=== PATIENT | male | born 1945 | race Caucasian/White ===

== ENCOUNTER → 2017-08-25 | Outpatient (REF) | payer MEDICARE ==
[2017-08-25 13:29] LABS: HEMATOCRIT 41.8 % (42.0-52.0); HEMOGLOBIN 13.7 g/dl (14.0-18.0); MEAN CORPUSCULAR HEMOGLOBIN 28.9 pg (27.0-33.0); MEAN CORPUSCULAR HGB CONC 32.8 g/dl (32.0-36.5); MEAN CORPUSCULAR VOLUME 88.2 fl (80.0-96.0); PLATELET COUNT, AUTOMATED 257 10^3/uL (150-450); RED BLOOD COUNT 4.74 10^6/uL (4.30-6.10); RED CELL DISTRIBUTION WIDTH 13.4 % (11.5-14.5); WHITE BLOOD COUNT 6.1 10^3/uL (4.0-10.0)
[2017-08-25 13:56] LABS: ALBUMIN 3.8 GM/DL (3.2-5.2); ALBUMIN/GLOBULIN RATIO 1.23 (1.00-1.93); ALKALINE PHOSPHATASE 98 U/L (45-117); ALT/SGPT 21 U/L (12-78); ANION GAP 7 MEQ/L (8-16); AST/SGOT 22 U/L (7-37); BILIRUBIN,TOTAL 0.6 MG/DL (0.2-1.0); BLOOD UREA NITROGEN 14 MG/DL (7-18); CARBON DIOXIDE LEVEL 30 MEQ/L (21-32); CHLORIDE LEVEL 106 MEQ/L (98-107); CHOLESTEROL LEVEL 196 MG/DL (<200); CHOLESTEROL RISK RATIO 3.629 (<5); CREATININE FOR GFR 0.93 MG/DL (0.70-1.30); GLOMERULAR FILTRATION RATE > 60.0 (>42); GLUCOSE, FASTING 77 MG/DL (70-100); HDL CHOLESTEROL 54 MG/DL (>40); LDL CHOLESTEROL 126.8 MG/DL (<100); NON-HDL-C 142 MG/DL; POTASSIUM SERUM 4.2 MEQ/L (3.5-5.1); SODIUM LEVEL 143 MEQ/L (136-145); TOTAL PROTEIN 6.9 GM/DL (6.4-8.2); TRIGLYCERIDES LEVEL 76 MG/DL (<150)
== END ==
LOC: M SFHCPLAZ 11:57
DX: Z00.00 Encounter for general adult medical examination without abnormal findings (principal); E78.00 Pure hypercholesterolemia, unspecified
CPT/HCPCS: 80053

== ENCOUNTER → 2019-08-29 | Outpatient (CLI) | payer MEDICARE ==
[~2019-08-29] MED LIST: E-Z-GAS II EFFERVESCENT PACKET (SODIUM BICARB./CITRIC ACID/SIMETHICONE) As Ordered ONE; E-Z-HD 98% w/w 340GM SUSP BTL As Ordered ONE; E-Z-PAQUE 96% w/w SUSP 176GM BTL As Ordered ONE
--- NOTE | 2019-08-29 11:29 | REP ---
Clinical: Dysphasia. History of esophageal varices. Technique: Real time wyatt scale and color evaluation using curved array transducer. Findings: The liver demonstrates a somewhat coarsened echotexture with increased echogenicity suggesting fatty infiltration the and possible focal fatty sparing adjacent to the gallbladder fossa. Liver contour is relatively normal. The pancreas is incompletely evaluated due to interposed bowel gas. The gallbladder is normal and without gallstones, wall thickening, or pericholecystic fluid. No biliary ductal dilatation is appreciated and the common bile duct measures 5.1 mm diameter. The right kidney demonstrates increased central sinus fat and renovascular calcifications without hydronephrosis and measures 10.6 x 5.3 x 4.9 cm. No ascites in the visualized right upper quadrant. Impression: 1. Findings to suggest hepatocellular disease without focal hepatic lesion. 2. Age-related renal disease. Electronically Signed by Martell Warren MD 08/29/2019 11:21 A
--- NOTE | 2019-08-29 20:02 | REP ---
Esophagram The procedure was performed under the direct supervision of Dr. Martins. The images were reviewed with Dr. Martins. A single view PA chest x-ray is submitted as a continuous still operator film. The superior mediastinal structures are midline. The heart size is within normal limits. The lungs are clear. Liquid barium and gas producing granules were given in the erect position as well as liquid barium in the prone oblique positions in order to perform a double contrast esophagram examination. The oral and pharyngeal stages of deglutition are unremarkable. There is a large Zenker's diverticulum identified. Esophageal transport is prompt and efficient and there is no esophagitis stricture or mucosal ring. There is a sliding type hiatal hernia. Gastroesophageal reflux is not demonstrated on this examination. Impression: 1. There is a large Zenker's diverticulum. 2. There is a sliding type hiatal hernia. One minutes of fluoro time was utilized for this procedure. Electronically Signed by EDU Bearden 08/29/2019 04:38 P Electronically Signed by Saji Martins MD 08/29/2019 07:53 P
== END ==
LOC: M RAD 09:46
PROVIDERS: ATTEND Internal Medicine Gastroenterology
DX: I85.00 Esophageal varices without bleeding (principal); R13.10 Dysphagia, unspecified

== ENCOUNTER → 2020-03-01 | Outpatient (CLI) | payer MEDICARE ==
--- NOTE | 2020-04-12 10:06 | REP ---
RIGHT UPPER QUADRANT ULTRASOUND: HISTORY: Cirrhosis. COMPARISON: 08/29/19 FINDINGS: Scanning through the right upper quadrant of the abdomen demonstrates a normal size, thin-walled gallbladder without evidence of stone or polyp. The common bile duct is normal, measuring 0.4 cm in greatest diameter. The liver parenchyma is hyperechoic diffusely, consistent with fatty infiltration. No focal liver mass lesion is seen. Limited views of the pancreas show no abnormality. There is no evidence of ascites or right renal abnormality. The right kidney measures 11.3 x 5.9 x 5.2 cm. IMPRESSION: Findings consistent with fatty infiltration of the liver. No focal liver lesion. Otherwise, negative right upper quadrant sonography. MTDD
== END ==
LOC: M RAD 09:30
PROVIDERS: ATTEND Internal Medicine Gastroenterology
DX: K74.60 Unspecified cirrhosis of liver (principal); I85.00 Esophageal varices without bleeding; R13.10 Dysphagia, unspecified; K22.2 Esophageal obstruction; K22.5 Diverticulum of esophagus, acquired; R79.9 Abnormal finding of blood chemistry, unspecified

== ENCOUNTER → 2020-09-23 | Outpatient (REF) | payer MEDICARE ==
[2020-09-23 13:53] LABS: BASO % 0.6 % (0.0-1.0); EOS # 0.1 10^3/uL (0.0-0.5); EOS % 1.8 % (0.0-3.0); HEMATOCRIT 39.5 % (42.0-52.0); LYMPH # 2.3 10^3/uL (1.5-5.0); LYMPH % 33.9 % (24.0-44.0); MEAN CORPUSCULAR HEMOGLOBIN 24.9 pg (27.0-33.0); MEAN CORPUSCULAR HGB CONC 30.4 g/dl (32.0-36.5); MONO # 0.7 10^3/uL (0.0-0.8); MONO % 9.9 % (2.0-8.0); NEUTROPHILS # 3.6 10^3/uL (1.5-8.5); NEUTROPHILS % 53.5 % (36.0-66.0); PLATELET COUNT, AUTOMATED 305 10^3/uL (150-450); RED BLOOD COUNT 4.82 10^6/uL (4.30-6.10); WHITE BLOOD COUNT 6.7 10^3/uL (4.0-10.0)
[2020-09-23 14:02] LABS: INR 1.07; PROTHROMBIN TIME 14.1 SECONDS (12.5-14.3)
[2020-09-23 14:27] LABS: ALBUMIN 3.9 GM/DL (3.2-5.2); ALT/SGPT 22 U/L (12-78); BILIRUBIN,TOTAL 0.4 MG/DL (0.2-1.0); BLOOD UREA NITROGEN 19 MG/DL (7-18); CALCIUM LEVEL 8.7 MG/DL (8.8-10.2); CARBON DIOXIDE LEVEL 28 MEQ/L (21-32); CHLORIDE LEVEL 109 MEQ/L (98-107); CHOLESTEROL LEVEL 197 MG/DL (<200); CHOLESTEROL RISK RATIO 3.078 (<5); CREATININE FOR GFR 1.16 MG/DL (0.70-1.30); GLOMERULAR FILTRATION RATE > 60.0 (>42); GLUCOSE, FASTING 87 MG/DL (70-100); HDL CHOLESTEROL 64 MG/DL (>40); LDL CHOLESTEROL 122 MG/DL (<100); NON-HDL-C 133 MG/DL; POTASSIUM SERUM 4.8 MEQ/L (3.5-5.1); SODIUM LEVEL 141 MEQ/L (136-145); TOTAL PROTEIN 6.9 GM/DL (6.4-8.2); TRIGLYCERIDES LEVEL 56 MG/DL (<150)
[2020-09-24 08:22] LABS: FERRITIN 15 NG/ML (26-388); IRON (FE) 58 UG/DL (65-175); PERCENT SATURATION 13.6 % (19.7-50.0); TOTAL IRON BINDING CAPACITY 428 UG/DL (250-450)
[2020-09-24 10:13] LABS: VITAMIN B12 LEVEL 314 PG/ML
[2020-09-24 10:14] LABS: FOLATE 9.2 NG/ML
== END ==
LOC: M SFHCPLAZ 11:03
PROVIDERS: ATTEND Internal Medicine
DX: R93.2 Abnormal findings on diagnostic imaging of liver and biliary tract (principal); E78.00 Pure hypercholesterolemia, unspecified; R13.10 Dysphagia, unspecified; Z12.5 Encounter for screening for malignant neoplasm of prostate
CPT/HCPCS: 36415; 80053; 80061; 82607; 82728; 82746; 83550; 85025; 85610; G0103

== ENCOUNTER → 2021-09-24 | Outpatient (REF) | payer MEDICARE | LOC: M SFHCPLAZ 10:46 | PROVIDERS: ATTEND Internal Medicine | DX: D64.9 Anemia, unspecified (principal); E78.00 Pure hypercholesterolemia, unspecified; R93.2 Abnormal findings on diagnostic imaging of liver and biliary tract; Z12.5 Encounter for screening for malignant neoplasm of prostate ==

== ENCOUNTER → 2021-09-24 | Outpatient (CLI) | payer MEDICARE ==
[2021-09-24 15:18] LABS: BASO % 0.3 % (0.0-1.0); EOS # 0.2 10^3/uL (0.0-0.5); EOS % 2.2 % (0.0-3.0); HEMATOCRIT 47.1 % (42.0-52.0); HEMOGLOBIN 15.8 g/dl (13.5-17.5); LYMPH # 2.4 10^3/uL (1.5-5.0); MEAN CORPUSCULAR HEMOGLOBIN 30.2 pg (27.0-33.0); MEAN CORPUSCULAR HGB CONC 33.5 g/dl (32.0-36.5); MEAN CORPUSCULAR VOLUME 90.1 fl (80.0-96.0); MONO # 0.8 10^3/uL (0.0-0.8); MONO % 11.8 % (2.0-8.0); NEUTROPHILS # 3.7 10^3/uL (1.5-8.5); NEUTROPHILS % 51.6 % (36.0-66.0); PLATELET COUNT, AUTOMATED 232 10^3/uL (150-450); RED BLOOD COUNT 5.23 10^6/uL (4.30-6.10); WHITE BLOOD COUNT 7.1 10^3/uL (4.0-10.0)
[2021-09-24 15:29] LABS: INR 1.02; PROTHROMBIN TIME 13.8 SECONDS (12.7-14.5)
[2021-09-24 16:00] LABS: ALBUMIN 3.9 GM/DL (3.2-5.2); ALT/SGPT 45 U/L (12-78); BILIRUBIN,TOTAL 0.8 MG/DL (0.2-1.0); BLOOD UREA NITROGEN 15 MG/DL (7-18); CALCIUM LEVEL 9.4 MG/DL (8.8-10.2); CARBON DIOXIDE LEVEL 29 MEQ/L (21-32); CHLORIDE LEVEL 108 MEQ/L (98-107); CHOLESTEROL LEVEL 224 MG/DL (<200); CHOLESTEROL RISK RATIO 3.862 (<5); CREATININE FOR GFR 1.09 MG/DL (0.70-1.30); GLOMERULAR FILTRATION RATE > 60.0 (>42); GLUCOSE, FASTING 87 MG/DL (70-100); HDL CHOLESTEROL 58 MG/DL (>40); LDL CHOLESTEROL 154 MG/DL (<100); NON-HDL-C 166 MG/DL; POTASSIUM SERUM 4.5 MEQ/L (3.5-5.1); SODIUM LEVEL 142 MEQ/L (136-145); TOTAL PROTEIN 7.1 GM/DL (6.4-8.2); TRIGLYCERIDES LEVEL 60 MG/DL (<150)
== END ==
LOC: M PLALAB 11:14
PROVIDERS: ATTEND Internal Medicine
DX: E78.00 Pure hypercholesterolemia, unspecified (principal); D64.9 Anemia, unspecified; R93.2 Abnormal findings on diagnostic imaging of liver and biliary tract

== ENCOUNTER → 2021-09-24 | Outpatient (CLI) | payer MEDICARE ==
[2021-09-24 15:43] LABS: MAGNESIUM LEVEL 2.3 MG/DL (1.8-2.4)
[2021-09-24 15:57] LABS: TOTAL 25(OH) VITAMIN D 40.3 NG/ML (30.0-100.0)
== END ==
LOC: M PLALAB 11:16
PROVIDERS: ATTEND Internal Medicine Gastroenterology
DX: R13.10 Dysphagia, unspecified (principal); K22.5 Diverticulum of esophagus, acquired; K74.60 Unspecified cirrhosis of liver; I85.00 Esophageal varices without bleeding; D50.0 Iron deficiency anemia secondary to blood loss (chronic); E55.9 Vitamin D deficiency, unspecified